=== PATIENT | female | born 1950 | race Caucasian/White ===

== ENCOUNTER 2023-12-06 15:25 | Emergency (ER) | payer OTHER, MEDICARE ==
[~2023-12-06] VITALS: Ht 170.2 cm; Wt 99.8 kg
[2023-12-06 15:41] VITALS: BP_SYST 125; PULSE 71; RESP 18; TEMP 98.1; O2SAT 100
[2023-12-06] MEDS: ACETAMINOPHEN 500 MG TABLET PO ONE (16:57)
[2023-12-06] MEDS ORDERED: IBUP-1969 PO (17:47)
[2023-12-06] MEDS ORDERED: ONDA-8 TL (17:47)
[2023-12-06 18:03] VITALS: BP_SYST 132; PULSE 71; RESP 18; TEMP 98.1; O2SAT 100
== END 2023-12-06 18:01 | disposition home or self-care (01) ==
LOC: SED 15:25
DX: S09.90XA Unspecified injury of head, initial encounter (principal); E11.9 Type 2 diabetes mellitus without complications; I10 Essential (primary) hypertension; Z88.1 Allergy status to other antibiotic agents; Z88.3 Allergy status to other anti-infective agents; Z79.899 Other long term (current) drug therapy; W01.0XXA Fall on same level from slipping, tripping and stumbling without subsequent striking against object, initial encounter; Y93.89 Activity, other specified; Y92.89 Other specified places as the place of occurrence of the external cause; Y99.8 Other external cause status
CPT/HCPCS: 70450-TC; 99284